=== PATIENT | male | born 2000 | race Caucasian/White ===

== ENCOUNTER 2025-02-01 21:32 | Emergency (ER) | payer OTHER ==
[~2025-02-01] VITALS: Ht 175.3 cm; Wt 72.6 kg
[2025-02-01] MEDS: dexaMETHasone SOD PHOSPHATE 4 MG/ML VIAL IM ONE (22:30)
[2025-02-01] MEDS: MORPHINE SULFATE INJ 2 MG/ML DISP.SYRIN IM ONE (22:30)
[2025-02-01] MEDS ORDERED: CARISOPRODOL 350 MG TABLET ONE (22:33)
[2025-02-01] MEDS ORDERED: dexaMETHasone SOD PHOSPHATE 1 ML ONE (22:33)
[2025-02-01] MEDS ORDERED: MORPHINE SULFATE INJ 4 MG/ML DISP.SYRIN ONE (22:34)
[2025-02-01] MEDS: CARISOPRODOL 350 MG TABLET PO ONE (22:40)
[2025-02-01] MEDS ORDERED: PRED50TA PO (23:07)
[2025-02-01] MEDS ORDERED: IBUP-1957 PO (23:07)
[2025-02-01] MEDS ORDERED: CARI350T PO (23:07)
[2025-02-01] MEDS ORDERED: HYDR-3972 PO (23:07)
[2025-02-01 23:30] VITALS: BP 144/104; TEMP 98; O2SAT 99
== END 2025-02-01 23:31 | disposition home or self-care (01) ==
LOC: ER 21:42
DX: S30.0XXA Contusion of lower back and pelvis, initial encounter (principal); M54.42 Lumbago with sciatica, left side; Z79.52 Long term (current) use of systemic steroids; V43.62XA Car passenger injured in collision with other type car in traffic accident, initial encounter; Y93.89 Activity, other specified; Y92.488 Other paved roadways as the place of occurrence of the external cause; Y99.8 Other external cause status
CPT/HCPCS: 99285; 72131; 96372; J1100; J2270

== ENCOUNTER 2025-06-28 13:51 | Emergency (ER) | payer MEDICAID ==
[~2025-06-28] VITALS: Ht 175.3 cm; Wt 68.0 kg
[~2025-06-28 13:51] MED LIST: CARI350T PO; HYDR-3972 PO; IBUP-1957 PO; PRED50TA PO
[2025-06-28 14:25] VITALS: TEMP 98.3
[2025-06-28] MEDS ORDERED: SULF1TAB48 PO (15:18)
[2025-06-28] MEDS ORDERED: IBUP-1490 PO (15:18)
[2025-06-28 15:26] VITALS: BP 122/79; O2SAT 98
== END 2025-06-28 15:26 | disposition home or self-care (01) ==
LOC: ER 13:54
DX: L03.114 Cellulitis of left upper limb (principal); Z79.52 Long term (current) use of systemic steroids; Z79.899 Other long term (current) drug therapy